=== PATIENT | female | born 1965 | race Caucasian/White ===

== ENCOUNTER 2023-08-04 11:31 | Emergency (ER) | payer OTHER ==
[2023-08-04] MEDS ORDERED: Ibuprofen 800 MG TAB ONE (12:15)
== END 2023-08-04 14:35 | disposition home or self-care (01) ==
LOC: MADERS 11:31
DX: S42.452A Displaced fracture of lateral condyle of left humerus, initial encounter for closed fracture (principal); F17.210 Nicotine dependence, cigarettes, uncomplicated; W01.0XXA Fall on same level from slipping, tripping and stumbling without subsequent striking against object, initial encounter; Y93.F2 Activity, caregiving, lifting
CPT/HCPCS: 29105